=== PATIENT | male | born 1995 | race Caucasian/White ===

== ENCOUNTER 2023-03-17 22:29 | Inpatient (IN) ==
[2023-03-17] MEDS ORDERED: ACETAMINOPHEN 1,000 MG/100 ML VIAL IV STA (22:40)
[2023-03-17] MEDS ORDERED: KETOROLAC 30 MG/ML VIAL IV STA (22:40)
--- NOTE | 2023-03-17 22:56 | Emergency Department Note ---
History of Present Illness General Chief complaint: Illness Stated complaint: BACK PAIN,LETHARGIC,HURTS TO BREATHE Time Seen by Provider: 03/17/23 22:37 History of Present Illness Maximum Pain Intensity: 8 This is a 27-year-old male presenting to the emergency department for evaluation of difficulty breathing, fever, and body aches. The patient is [place] and has had symptoms for 2 weeks. He has not taken anything [id number] for symptoms. Patient is usually healthy and quite active. His discomfort is rated an 8/10. Discomfort worsens with movement. No photophobia. He does have persistent cough. Home Medications Medication Instructions Recorded Confirmed Type loratadine 10 mg tablet (Allergy 10 mg PO DAILY PRN Congestion 03/17/23 03/17/23 History Relief (loratadine)) Allergies Allergy/AdvReac Type Severity Reaction Status Date / Time No Known Allergies Allergy Verified 03/17/23 23:24 Past Med/Surg History Medical History No chronic diseases present Surgical History No significant past surgical history Social History Smoking Status: Current some day smoker Tobacco Type: Cigarettes Preferred Language: Setswana Feels Safe at Home: Yes Review of Systems A total of 10 systems reviewed and were otherwise negative Physical Exam Vital Signs Vital Signs - 24 hr 03/17/23 22:32 03/17/23 22:57 03/17/23 23:09 Temperature 38.3 C H Temperature Source Temporal Artery Scan Pulse Rate 105 H 107 H Pulse Rate [Finger] 94 H Pulse Rhythm [Finger] Regular Respiratory Rate 18 20 Respiratory Effort / Characteristics Non-Labored Spontaneous Non-Labored Spontaneous Respiratory Depth Normal Normal Blood Pressure 105/57 L Blood Pressure [Left Arm] 127/70 Blood Pressure Mean 73 Blood Pressure Mean [Left Arm] 89 Blood Pressure Position Sitting Pulse Oximetry 93 95 Oxygen Delivery Method Room Air Nasal Cannula Oxygen Flow Rate 4 Sepsis Recent Fever Within 48 Hours No Sepsis New/Unexplained Change in Mental Status No Sepsis Action Taken by Nursing Physician Notified 03/17/23 23:09 03/18/23 00:00 Temperature 38 C H Temperature Source Oral Pulse Rate Pulse Rate [Finger] Pulse Rhythm [Finger] Respiratory Rate Respiratory Effort / Characteristics Respiratory Depth Blood Pressure Blood Pressure [Left Arm] Blood Pressure Mean Blood Pressure Mean [Left Arm] Blood Pressure Position Pulse Oximetry 95 Oxygen Delivery Method Nasal Cannula Oxygen Flow Rate 4 Sepsis Recent Fever Within 48 Hours Sepsis New/Unexplained Change in Mental Status Sepsis Action Taken by Nursing VITALS: Vitals are noted on the nurse's note and reviewed by myself. Vital signs with fever and tachycardia. GENERAL: Well-developed, well-nourished, white male, who is ill-appearing on presentation. He is answering questions appropriately. EARS: External ear normal. External auditory canals clear, tympanic membranes pearly martínez without erythema or effusion bilaterally. EYES: Pupils equal round and reactive to light and accommodation. Conjunctivae without injection, sclerae without icterus. Extraocular movements intact. NOSE: Patent, turbinates without inflammation or discharge. MOUTH: Mucous membranes moist. Tonsils are not enlarged. Pharynx without erythema, blood, or exudate. Uvula midline. Airway patent. NECK: Supple without nuchal rigidity. No lymphadenopathy. No thyromegaly. Cervical spine is nontender. HEART: Regular rate and rhythm without murmurs gallops or rubs. LUNGS: Coarse breath sounds throughout diminished sounds in the left lower jasmine. ABDOMEN: Positive normal bowel sounds x 4. Soft, nontender, without masses or organomegaly. No guarding or rebound tenderness. MUSCULOSKELETAL: No muscle atrophy, erythema, or edema noted. Full range of motion in all extremities. NEURO: Patient was alert and oriented to person place and time. CN II through XII grossly intact. Course Administered Medications Magnesium Sulfate/Dextrose (Magnesium Sulfate / D5w) 1 gm in 100 mls @ 100 ml s/hr IV NOW STA Stop: 03/18/23 02:16 Last Admin: 03/18/23 01:34 Dose: 100 mls/hr Documented By: ROGER Discontinued Medications Sodium Chloride (Nss 1000ml) 1,000 mls @ 999 mls/hr IV .Q1H1M TASH Stop: 03/18/23 00:41 Last Infusion: 03/18/23 01:00 Dose: 0 mls/hr Documented By: Admin: 03/17/23 23:41 Dose: 999 mls/hr Documented By: Infusion: 03/17/23 23:39 Dose: 0 mls/hr Documented By: Admin: 03/17/23 23:07 Dose: 999 mls/hr Documented By: ROGER Acetaminophen (Ofirmev) 1,000 mg in 100 mls @ 400 mls/hr IV NOW STA Stop: 03/17/23 22:54 Last Infusion: 03/17/23 23:39 Dose: 0 mls/hr Documented By: Admin: 03/17/23 23:05 Dose: 400 mls/hr Documented By: ROGER Vancomycin HCl 2,000 mg/ (Sodium Chloride) 540 mls @ 200 mls/hr IV NOW ONE Stop: 03/18/23 01:58 Last Admin: 03/17/23 23:40 Dose: 200 mls/hr Documented By: ROGER Piperacillin Sod/Tazobactam Sod (Zosyn) 4.5 gm in 120 mls @ 240 mls/hr IV NOW ONE Stop: 03/17/23 23:46 Last Infusion: 03/18/23 00:10 Dose: 0 mls/hr Documented By: Admin: 03/17/23 23:40 Dose: 240 mls/hr Documented By: ROGER Ioversol (Optiray 320 500ml) 125 ml IV ONCE ONE Stop: 03/17/23 23:31 Last Admin: 03/17/23 23:30 Dose: 113 ml Documented By: STEPHY Ketorolac Tromethamine (Ketorolac 30 Mg/Ml Vial) 30 mg IV NOW STA Stop: 03/17/23 22:41 Last Admin: 03/17/23 23:05 Dose: 30 mg Documented By: ROGER Medical Decision Making Differential Diagnosis Differential diagnosis: Etiologies such as viral syndrome, otitis, pharyngitis, pneumonia, influenza, meningitis, urinary tract infection, septic arthritis, soft tissue infectious process, intra-abdominal process, sepsis, bacteremia, as well as others were entertained. Laboratory Data 03/17/23 23:00 03/17/23 23:00 Lab Results 03/17/23 03/17/23 03/17/23 Range/Units 23:00 23:00 23:00 WBC 9.73 (4.8-10.8) K/ul RBC 4.72 (4.70-6.10) M/uL Hgb 14.5 (14.0-18.0) g/dl POC Hgb (14.0-18.0) g/dl Hct 39.9 L (42.0-52.0) % POC Hct (42-52) % MCV 84.5 (80.0-100.0) fL MCH 30.7 (25.0-34.0) pg MCHC 36.3 H (32.0-36.0) g/dL RDW Std Deviation 36.8 (36.4-46.3) fL RDW Coeff of Faviola 12.1 (11.5-14.5) % Plt Count 102 L (130-400) K/uL MPV 11.3 (9.4-12.4) fL Immature Gran % (Auto) 0.4 % Neut % (Auto) 91.3 % Lymph % (Auto) 5.2 % Carson % (Auto) 3.0 % Eos % (Auto) 0.0 % Baso % (Auto) 0.1 % Neut # (Auto) 8.88 H (1.40-6.50) K/uL Lymph # (Auto) 0.51 L (1.2-3.4) K/uL Carson # (Auto) 0.29 (0.11-0.59) K/uL Eos # (Auto) 0.00 (0-0.50) K/uL Baso # (Auto) 0.01 (0-0.2) K/uL Immature Gran # (Auto) 0.04 (0.01-0.20) K/uL PT (9.0-12.0) Seconds INR (0.9-1.1) APTT (21.0-31.0) Seconds PTT Ratio POC Sodium (135-144) mmol/L Sodium 133 L (136-145) mmol/L POC Potassium (3.3-5.0) mmol/L Potassium 3.1 L (3.5-5.1) mmol/L POC Chloride (101-112) mmol/L Chloride 99 (98-107) mmol/L Carbon Dioxide 24 (21-32) mmol/L POC Total CO2 (24-31) mmol/L Anion Gap 10 (3-11) POC Anion Gap (16-25) mmol/L POC BUN (7-18) mg/dl BUN 15 (6-23) mg/dl Creatinine 0.98 (0.6-1.4) mg/dl POC Creatinine (0.6-1.3) mg/dl Est Cr Clr Drug Dosing 135.8 ml/min Est GFR ( Amer) 121.1 ml/min Est GFR (Non-Af Amer) 104.5 ml/min BUN/Creatinine Ratio 15.3 (10-20) Glucose 148 H (70-99(Fasting)) mg/dl POC Glucose (other) (70-99) mg/dl Lactate (0.4-2.0) mmol/L Calcium 8.6 (8.6-10.3) mg/dl POC Ioniz Calcium Hoa (1.12-1.32) mmol/l Magnesium 1.1 L (1.7-2.4) mg/dl Total Bilirubin 1.2 H (0.2-1.0) mg/dl AST 20 (13-39) U/L ALT 18 (7-52) U/L Alkaline Phosphatase 55 (34-104) U/L Troponin I High Sens 4.7 (0-20) pg/ml Total Protein 6.5 (6.0-8.3) gm/dl Albumin 4.2 (3.4-5.0) gm/dl Globulin 2.3 L (2.5-4.0) gm/dl Albumin/Globulin Ratio 1.8 (0.9-2) Lipase 9 L (11-82) U/L Adenovirus (PCR) (NotDetected) Anaplasma Smear B. pertussis DNA (PCR) (NotDetected) B.parapertussis DNA PCR (NotDetected) Lyme Disease IgG Ab Negative (Negative) Lyme Disease IgM Ab Negative (Negative) C. pneumoniae DNA (PCR) (NotDetected) Coronavirus OC43 (PCR) (NotDetected) Coronavirus HKU1 (PCR) (NotDetected) Coronavirus 229E (PCR) (NotDetected) SARS-CoV-2 (PCR) (NotDetected) Coronavirus NL63 (PCR) (NotDetected) Human Metapneumovir PCR (NotDetected) Influenza Type A (PCR) (NotDetected) Influenza Type B (PCR) (NotDetected) M. pneumoniae (PCR) (NotDetected) Parainfluenza 1 (PCR) (NotDetected) Parainfluenza 2 (PCR) (NotDetected) Parainfluenza 3 (PCR) (NotDetected) Parainfluenza 4 (PCR) (NotDetected) RSV (PCR) (NotDetected) Entero/Rhino (PCR) (NotDetected) 03/17/23 03/17/23 03/17/23 Range/Units 23:00 23:00 23:00 WBC (4.8-10.8) K/ul RBC (4.70-6.10) M/uL Hgb (14.0-18.0) g/dl POC Hgb (14.0-18.0) g/dl Hct (42.0-52.0) % POC Hct (42-52) % MCV (80.0-100.0) fL MCH (25.0-34.0) pg MCHC (32.0-36.0) g/dL RDW Std Deviation (36.4-46.3) fL RDW Coeff of Faviola (11.5-14.5) % Plt Count (130-400) K/uL MPV (9.4-12.4) fL Immature Gran % (Auto) % Neut % (Auto) % Lymph % (Auto) % Carson % (Auto) % Eos % (Auto) % Baso % (Auto) % Neut # (Auto) (1.40-6.50) K/uL Lymph # (Auto) (1.2-3.4) K/uL Carson # (Auto) (0.11-0.59) K/uL Eos # (Auto) (0-0.50) K/uL Baso # (Auto) (0-0.2) K/uL Immature Gran # (Auto) (0.01-0.20) K/uL PT 12.3 H (9.0-12.0) Seconds INR 1.1 (0.9-1.1) APTT 32.9 H (21.0-31.0) Seconds PTT Ratio 1.2 POC Sodium (135-144) mmol/L Sodium (136-145) mmol/L POC Potassium (3.3-5.0) mmol/L Potassium (3.5-5.1) mmol/L POC Chloride (101-112) mmol/L Chloride (98-107) mmol/L Carbon Dioxide (21-32) mmol/L POC Total CO2 (24-31) mmol/L Anion Gap (3-11) POC Anion Gap (16-25) mmol/L POC BUN (7-18) mg/dl BUN (6-23) mg/dl Creatinine (0.6-1.4) mg/dl POC Creatinine (0.6-1.3) mg/dl Est Cr Clr Drug Dosing ml/min Est GFR ( Amer) ml/min Est GFR (Non-Af Amer) ml/min BUN/Creatinine Ratio (10-20) Glucose (70-99(Fasting)) mg/dl POC Glucose (other) (70-99) mg/dl Lactate 1.6 (0.4-2.0) mmol/L Calcium (8.6-10.3) mg/dl POC Ioniz Calcium Hoa (1.12-1.32) mmol/l Magnesium (1.7-2.4) mg/dl Total Bilirubin (0.2-1.0) mg/dl AST (13-39) U/L ALT (7-52) U/L Alkaline Phosphatase (34-104) U/L Troponin I High Sens (0-20) pg/ml Total Protein (6.0-8.3) gm/dl Albumin (3.4-5.0) gm/dl Globulin (2.5-4.0) gm/dl Albumin/Globulin Ratio (0.9-2) Lipase (11-82) U/L Adenovirus (PCR) (NotDetected) Anaplasma Smear See Comment B. pertussis DNA (PCR) (NotDetected) B.parapertussis DNA PCR (NotDetected) Lyme Disease IgG Ab (Negative) Lyme Disease IgM Ab (Negative) C. pneumoniae DNA (PCR) (NotDetected) Coronavirus OC43 (PCR) (NotDetected) Coronavirus HKU1 (PCR) (NotDetected) Coronavirus 229E (PCR) (NotDetected) SARS-CoV-2 (PCR) (NotDetected) Coronavirus NL63 (PCR) (NotDetected) Human Metapneumovir PCR (NotDetected) Influenza Type A (PCR) (NotDetected) Influenza Type B (PCR) (NotDetected) M. pneumoniae (PCR) (NotDetected) Parainfluenza 1 (PCR) (NotDetected) Parainfluenza 2 (PCR) (NotDetected) Parainfluenza 3 (PCR) (NotDetected) Parainfluenza 4 (PCR) (NotDetected) RSV (PCR) (NotDetected) Entero/Rhino (PCR) (NotDetected) 03/17/23 03/17/23 Range/Units 23:11 23:15 WBC (4.8-10.8) K/ul RBC (4.70-6.10) M/uL Hgb (14.0-18.0) g/dl POC Hgb 14.3 (14.0-18.0) g/dl Hct (42.0-52.0) % POC Hct 42 (42-52) % MCV (80.0-100.0) fL MCH (25.0-34.0) pg MCHC (32.0-36.0) g/dL RDW Std Deviation (36.4-46.3) fL RDW Coeff of Faviola (11.5-14.5) % Plt Count (130-400) K/uL MPV (9.4-12.4) fL Immature Gran % (Auto) % Neut % (Auto) % Lymph % (Auto) % Carson % (Auto) % Eos % (Auto) % Baso % (Auto) % Neut # (Auto) (1.40-6.50) K/uL Lymph # (Auto) (1.2-3.4) K/uL Carson # (Auto) (0.11-0.59) K/uL Eos # (Auto) (0-0.50) K/uL Baso # (Auto) (0-0.2) K/uL Immature Gran # (Auto) (0.01-0.20) K/uL PT (9.0-12.0) Seconds INR (0.9-1.1) APTT (21.0-31.0) Seconds PTT Ratio POC Sodium 134 L (135-144) mmol/L Sodium (136-145) mmol/L POC Potassium 3.1 L (3.3-5.0) mmol/L Potassium (3.5-5.1) mmol/L POC Chloride 95 L (101-112) mmol/L Chloride (98-107) mmol/L Carbon Dioxide (21-32) mmol/L POC Total CO2 22 L (24-31) mmol/L Anion Gap (3-11) POC Anion Gap 20.0 (16-25) mmol/L POC BUN 13 (7-18) mg/dl BUN (6-23) mg/dl Creatinine (0.6-1.4) mg/dl POC Creatinine 1.0 (0.6-1.3) mg/dl Est Cr Clr Drug Dosing ml/min Est GFR ( Amer) ml/min Est GFR (Non-Af Amer) ml/min BUN/Creatinine Ratio (10-20) Glucose (70-99(Fasting)) mg/dl POC Glucose (other) 153 H (70-99) mg/dl Lactate (0.4-2.0) mmol/L Calcium (8.6-10.3) mg/dl POC Ioniz Calcium Hoa 1.09 L (1.12-1.32) mmol/l Magnesium (1.7-2.4) mg/dl Total Bilirubin (0.2-1.0) mg/dl AST (13-39) U/L ALT (7-52) U/L Alkaline Phosphatase (34-104) U/L Troponin I High Sens (0-20) pg/ml Total Protein (6.0-8.3) gm/dl Albumin (3.4-5.0) gm/dl Globulin (2.5-4.0) gm/dl Albumin/Globulin Ratio (0.9-2) Lipase (11-82) U/L Adenovirus (PCR) Not Detected (NotDetected) Anaplasma Smear B. pertussis DNA (PCR) Not Detected (NotDetected) B.parapertussis DNA PCR Not Detected (NotDetected) Lyme Disease IgG Ab (Negative) Lyme Disease IgM Ab (Negative) C. pneumoniae DNA (PCR) Not Detected (NotDetected) Coronavirus OC43 (PCR) Not Detected (NotDetected) Coronavirus HKU1 (PCR) Not Detected (NotDetected) Coronavirus 229E (PCR) Not Detected (NotDetected) SARS-CoV-2 (PCR) Not Detected (NotDetected) Coronavirus NL63 (PCR) Not Detected (NotDetected) Human Metapneumovir PCR Not Detected (NotDetected) Influenza Type A (PCR) Not Detected (NotDetected) Influenza Type B (PCR) Not Detected (NotDetected) M. pneumoniae (PCR) Not Detected (NotDetected) Parainfluenza 1 (PCR) Not Detected (NotDetected) Parainfluenza 2 (PCR) DETECTED A* (NotDetected) Parainfluenza 3 (PCR) Not Detected (NotDetected) Parainfluenza 4 (PCR) Not Detected (NotDetected) RSV (PCR) Not Detected (NotDetected) Entero/Rhino (PCR) Not Detected (NotDetected) Imaging Data Radiologist's Impression: Chest CTA 03/17/23 23:00 Exam(s): CTA CHEST IV Amt: 112 ml optiray 320 EXAM: CT Angiography Chest With Intravenous Contrast CLINICAL HISTORY: Reason for exam: Fever, SOB, cough. TECHNIQUE: Axial computed tomographic angiography images of the chest with intravenous contrast. CTDI is 20.5 mGy and DLP is 673.81 mGy-cm. Automated exposure control was utilized for the study. A dose lowering technique was utilized adhering to the principles of ALARA. MIP reconstructed images were created and reviewed. COMPARISON: Prior chest x-ray dated 03/17/2023 FINDINGS: Pulmonary arteries: Breathing motion artifact limits evaluation of the peripheral arteries. No central pulmonary embolism. Somewhat low- density appearance in the left upper lobe segmental/subsegmental artery, series 4 image 158. Limited evaluation with motion artifact at this level. Small PE not excluded. Aorta: No acute findings. No thoracic aortic aneurysm. Lungs: Large area of consolidation in the left lower lobe. Mild right basilar atelectasis or airspace disease. Pleural space: Unremarkable. No significant effusion. No pneumothorax. Heart: Unremarkable. No cardiomegaly. No significant pericardial effusion. No evidence of RV dysfunction. Bones/joints: No acute fracture. No dislocation. Soft tissues: Unremarkable. Lymph nodes: Unremarkable. No enlarged lymph nodes. Kidneys and ureters: Partially visualized left kidney appears to have cortical thinning and cystic changes or hydronephrosis. Limited minimal visualization. IMPRESSION: 1. Large area of consolidation in the left lower lobe. Likely represents pneumonia. Consider follow-up to exclude malignancy. 2. Breathing motion artifact limits evaluation of the peripheral arteries. No central pulmonary embolism. Somewhat low-density appearance in the left upper lobe segmental/subsegmental artery, series 4 image 158. Limited evaluation with motion artifact at this level. Small PE not excluded. 3. Partially visualized left kidney appears to have cortical thinning and cystic changes or hydronephrosis. Limited minimal visualization. Electronically signed by: Melchor Pham M.D. 03/18/23 00:56 AM MDM Narrative Physical exam and history were performed. Nursing notes, EMR, and Medication List were personally reviewed. No social concerns were identified as barriers to patients care. Patient appears to have fever and difficulty breathing bring him to the ER. He does appear ill on presentation. He has diminished breath sounds in the left lower lobes. IV access was established and labs were obtained. Sepsis work-up was begun. He was given 2 L normal saline, IV vancomycin, and IV Zosyn. He was given IV Toradol and IV Tylenol. He was placed on nasal cannula oxygen for comfort. Chest x-ray appears to show pneumonia and he was sent to CT scan for further differentiation. An order was placed for continuous cardiac monitoring. The monitor shows a rate of 94 with normal sinus rhythm. Patient's blood work is as above and was reviewed. He does not have an elevated white blood cell count, gross anemia, or significant electrolyte imbalance. INR is 1.1. Potassium is 3.1. Magnesium is low at 1.1 and this was repleted through the IV. Transaminases are not diagnostic. Troponin is negative. Bio fire is POSITIVE for parainfluenza 2. CT angiogram does show a large left lower lobe pneumonia which would correlate with his symptoms. Lactic is negative with blood cultures pending. Case was discussed with my attending physician, Dr. Lackey, as well as the on- call hospitalist team. The patient does not appear well for discharge home. He does have a large left lower lobe pneumonia that would likely benefit from continued IV antibiotics. Please see the hospitalist dictation for further patient course, plan, disposition. The chart was completed utilizing [employer] Voice Recognition Software. Grammatical errors, random word insertions, pronoun errors, and incomplete sentences are an occasional consequence of this system due to software limitations, ambient noise, and hardware issues. Any formal questions or concerns about the content, text, or information contained within the body of this dictation should be directly addressed to the provider for clarification. . Impression & Plan Left lower lobe pneumonia, Parainfluenza infection, Low blood magnesium Discharge Plan Visit Data Chief Complaint: Illness Stated Complaint: BACK PAIN,LETHARGIC,HURTS TO BREATHE ED Provider: Carlo Lackey ED Midlevel Provider: Foreign Nunez Discharge Problem: Left lower lobe pneumonia, Parainfluenza infection, Low blood magnesium Forms Stand Alone Forms: My [facility] [employer] Prescriptions Prescriptions: No Action loratadine [Allergy Relief (loratadine)] 10 mg Tablet 10 mg PO DAILY PRN (Reason: Congestion) Referrals Referrals: PCP,NO [Primary Care Provider] -
[2023-03-17] MEDS: SODIUM CHLORIDE 0.9% 1000ML 1,000 ML IV SCH ×2 (23:07→23:41)
[2023-03-17] MEDS ORDERED: VANCOMYCIN CONSULT ACTIVE PRN (23:17)
[2023-03-17] MEDS ORDERED: PIPERACILLIN/TAZOBACTAM 4.5 GM/120 ML BAG IV ONE (23:17)
[2023-03-17] MEDS ORDERED: VANCOMYCIN HCL 2,000 MG in SODIUM CHLORIDE 0.9% 500 ML IV ONE (23:17)
[2023-03-17 23:24] LABS: iSTAT Hemoglobin 14.3 g/dl (14.0-18.0); iSTAT Ionized Calcium 1.09 mmol/l (1.12-1.32); iSTAT Potassium 3.1 mmol/L (3.3-5.0)
[2023-03-17] MEDS ORDERED: OPTIRAY 320 500ml IV ONE (23:30)
[2023-03-17 23:43] LABS: Albumin Globulin Ratio 1.8 (0.9-2); Albumin Level 4.2 gm/dl (3.4-5.0); BUN Creatinine Ratio 15.3 (10-20); Bilirubin,Total 1.2 mg/dl (0.2-1.0); Calcium 8.6 mg/dl (8.6-10.3); Creatinine Clr Calc Pharmacy 135.8 ml/min; Est GFR (African American) 121.1 ml/min; Est GFR (Non-African American) 104.5 ml/min; Globulin 2.3 gm/dl (2.5-4.0); Magnesium 1.1 mg/dl (1.7-2.4); Potassium 3.1 mmol/L (3.5-5.1); Total Protein 6.5 gm/dl (6.0-8.3)
[2023-03-17 23:47] LABS: Hematocrit (blood only) 39.9 % (42.0-52.0); Hemoglobin 14.5 g/dl (14.0-18.0); Mean Corpuscular Hemoglobin 30.7 pg (25.0-34.0); Mean Corpuscular Hgb Conc 36.3 g/dL (32.0-36.0); Mean Corpuscular Volume 84.5 fL (80.0-100.0); Mean Platelet Volume 11.3 fL (9.4-12.4); Platelet Count 102 K/uL (130-400); RDW Coefficient of Variation 12.1 % (11.5-14.5); RDW Standard Deviation 36.8 fL (36.4-46.3); Red Blood Count 4.72 M/uL (4.70-6.10); Troponin I High Sensitivity 4.7 pg/ml (0-20); White Blood Count 9.73 K/ul (4.8-10.8)
[2023-03-17 23:51] LABS: Basophils # (auto) 0.01 K/uL (0-0.2); Basophils % (auto) 0.1 %; Immature Granulocytes # (auto) 0.04 K/uL (0.01-0.20); Immature Granulocytes % (auto) 0.4 %; Lymphocytes # (auto) 0.51 K/uL (1.2-3.4); Lymphocytes % (auto) 5.2 %; Monocytes # (auto) 0.29 K/uL (0.11-0.59); Neutrophils # (auto) 8.88 K/uL (1.40-6.50); Neutrophils % (auto) 91.3 %
[2023-03-17 23:52] LABS: INR 1.1 (0.9-1.1); Partial Thromboplastin Ratio 1.2; Partial Thromboplastin Time 32.9 Seconds (21.0-31.0); Prothrombin Time 12.3 Seconds (9.0-12.0)
[2023-03-18 00:11] LABS: Lyme Ab IgG w/WB Rflx Negative (Negative); Lyme Ab IgM w/WB Rflx Negative (Negative)
[2023-03-18 00:32] LABS: Adenovirus PCR Not Detected (NotDetected); Bordetella parapertussis PCR Not Detected (NotDetected); Bordetella pertussis PCR Not Detected (NotDetected); Chlamydia pneumoniae PCR Not Detected (NotDetected); Coronavirus 229E PCR Not Detected (NotDetected); Coronavirus CoV-2 (COVID19)PCR Not Detected (NotDetected); Coronavirus HKU1 PCR Not Detected (NotDetected); Coronavirus NL63 PCR Not Detected (NotDetected); Coronavirus OC43PCR Not Detected (NotDetected); Human Metapneumovirus PCR Not Detected (NotDetected); Influenza A PCR Not Detected (NotDetected); Influenza B PCR Not Detected (NotDetected); Mycoplasma pneumoniae PCR Not Detected (NotDetected); Parainfluenza Virus 1 PCR Not Detected (NotDetected); Parainfluenza Virus 3 PCR Not Detected (NotDetected); Parainfluenza Virus 4 PCR Not Detected (NotDetected); Respiratory Syncytial VirusPCR Not Detected (NotDetected); Rhinovirus/Enterovirus PCR Not Detected (NotDetected)
[2023-03-18 00:33] LABS: Parainfluenza Virus 2 PCR DETECTED (NotDetected)
--- NOTE | 2023-03-18 00:57 | CT Scan Report ---
Exam(s): CTA CHEST IV Amt: 112 ml optiray 320 EXAM: CT Angiography Chest With Intravenous Contrast CLINICAL HISTORY: Reason for exam: Fever, SOB, cough. TECHNIQUE: Axial computed tomographic angiography images of the chest with intravenous contrast. CTDI is 20.5 mGy and DLP is 673.81 mGy-cm. Automated exposure control was utilized for the study. A dose lowering technique was utilized adhering to the principles of ALARA. MIP reconstructed images were created and reviewed. COMPARISON: Prior chest x-ray dated 03/17/2023 FINDINGS: Pulmonary arteries: Breathing motion artifact limits evaluation of the peripheral arteries. No central pulmonary embolism. Somewhat low- density appearance in the left upper lobe segmental/subsegmental artery, series 4 image 158. Limited evaluation with motion artifact at this level. Small PE not excluded. Aorta: No acute findings. No thoracic aortic aneurysm. Lungs: Large area of consolidation in the left lower lobe. Mild right basilar atelectasis or airspace disease. Pleural space: Unremarkable. No significant effusion. No pneumothorax. Heart: Unremarkable. No cardiomegaly. No significant pericardial effusion. No evidence of RV dysfunction. Bones/joints: No acute fracture. No dislocation. Soft tissues: Unremarkable. Lymph nodes: Unremarkable. No enlarged lymph nodes. Kidneys and ureters: Partially visualized left kidney appears to have cortical thinning and cystic changes or hydronephrosis. Limited minimal visualization. IMPRESSION: 1. Large area of consolidation in the left lower lobe. Likely represents pneumonia. Consider follow-up to exclude malignancy. 2. Breathing motion artifact limits evaluation of the peripheral arteries. No central pulmonary embolism. Somewhat low-density appearance in the left upper lobe segmental/subsegmental artery, series 4 image 158. Limited evaluation with motion artifact at this level. Small PE not excluded. 3. Partially visualized left kidney appears to have cortical thinning and cystic changes or hydronephrosis. Limited minimal visualization. Electronically signed by: Melchor Pham M.D. 03/18/23 00:56 AM
[2023-03-18] MEDS ORDERED: MAGNESIUM SULFATE / D5W 1 GM/100 ML BAG IV STA (01:17)
[2023-03-18] MEDS ORDERED: ONDANSETRON INJ 2 MG/ML 2 ML VIAL IV PRN (03:17)
[2023-03-18] MEDS ORDERED: NITROGLYCERIN SL 0.4 MG/TAB TAB SL PRN (03:17)
[2023-03-18] MEDS ORDERED: ACETAMINOPHEN 325 MG TAB PO PRN (03:17)
[2023-03-18 03:41] LABS: Appearance Urine Clear (Clear); Bilirubin Urine Negative (Negative); Blood Urine Negative (Negative); Color Urine Yellow; Glucose Urine UA Negative (Negative); Ketones Urine Negative (Negative); Leukocyte Esterase Urine Negative (Negative); Nitrite Urine Negative (Negative); Protein Urine Negative (Negative); Specific Gravity Urine 1.017 (1.000-1.030); Urobilinogen Urine Negative (Negative); pH Urine 5.5 (4.5-7.5)
[2023-03-18] MEDS: SODIUM CHLORIDE 0.9% 1000ML 1,000 ML IV SCH ×2 (03:41→11:29)
[2023-03-18] MEDS: POTASSIUM CHLORIDE / WTR 10 MEQ/100 ML PLCT IV SCH ×4 (03:41→07:00)
[2023-03-18] MEDS: MAGNESIUM SULFATE / D5W 1 GM/100 ML BAG IV SCH ×2 (03:42→05:50)
[2023-03-18] MEDS: DOXYCYCLINE HYCLATE 100 MG in DEXTROSE 5% 100 ML IV SCH ×2 (04:14→16:02)
--- NOTE | 2023-03-18 05:24 | History and Physical Report ---
DATE OF ADMISSION: 03/18/2023. CHIEF COMPLAINT: Shortness of breath, cough. HISTORY OF PRESENT ILLNESS: A 27-year-old male [facility] patient presents with flu-like symptoms last 2 weeks, has cough, body aches, back pain going on for the last 2 weeks but lately got worse with some shortness of breath, poor appetite, and a couple of episodes of nausea today, which prompted him to come to the ER .In ER and was spiking temperature, was placed on oxygen, slightly tachycardic. Respiratory BioFire came back positive for parainfluenza and CTA chest showed left lower lobe pneumonia, . The patient received antibiotics, vancomycin and Zosyn in the ER. The patient is alert, awake, speaks with low voice. Denies any chest pain. Denies any headache. No blurred visions. No earache. Has some runny nose and some sore throat. No abdominal pain. Normal bowel and bladder movements. No rash. No swelling in the legs. ALLERGIES: No known drug allergies. PAST MEDICAL HISTORY: Denies any past medical history. PAST SURGICAL HISTORY: Denies any surgeries. MEDICATIONS: Denies taking any medications. FAMILY HISTORY: Denies any family history of heart disease or cancer, hypertension, diabetes. REVIEW OF SYSTEMS: As per HPI. Rest of review of systems is negative. PHYSICAL EXAMINATION: GENERAL: The patient is of moderate build, not in acute distress. VITAL SIGNS: T-max 38.3, pulse 94, respiratory rate 20, blood pressure 112/66, oxygen 94 % on 4 liters. HEENT: Pupils equal, round and reactive to light. Oral mucosa moist. NECK: No JVD, no neck masses. CARDIOVASCULAR: S1 and S2 heard. Tachycardia. No murmurs. RESPIRATORY SYSTEM: Normal AP diameter. No accessory muscle use. No wheezing or crackles. ABDOMEN: Soft, bowel sounds present, nontender, no distention. CENTRAL NERVOUS SYSTEM: Alert and oriented. Speech is clear. No facial droop. Obeys simple commands. Moves extremities. EXTREMITIES: No edema, no erythema. LABORATORY DATA: WBC 9.7, hemoglobin 14.5, hematocrit 39.9, platelets 102. PT 12.3, INR 1.1, APTT 32.9. Sodium 133, potassium 3.1, chloride 99, CO2 of 24, BUN 15, creatinine 0.9, serum glucose 148, lactate 1.6, calcium 8.6, magnesium 1.1, total bilirubin 1.2, AST 20, ALT 18, alkaline phosphatase 55. Troponin I high sensitivity 4.7, lipase 9. Respiratory BioFire positive for parainfluenza. Lyme screen negative. Anaplasma screen negative. Adenovirus negative. IMAGING DATA: CTA chest : 1. Large area of consolidation in the left lower lobe. Likely represents pneumonia. Consider follow-up to exclude malignancy. 2. Breathing motion artifact limits evaluation of the peripheral arteries. No central pulmonary embolism. Somewhat low-density appearance in the left upper lobe segmental/subsegmental artery, series 4 image 158. Limited evaluation with motion artifact at this level. Small PE not excluded. 3. Partially visualized left kidney appears to have cortical thinning and cystic changes or hydronephrosis. Limited minimal visualization. EKG: Normal sinus rhythm, rate of 87, right bundle-branch block. ASSESSMENT AND PLAN: This is a 27-year-old male who presents with ongoing flu- like symptoms for the last [address] scan showing left lower lobe pneumonia. 1. Left lower lobe pneumonia questionable underlying malignancy. Needs to follow up to rule out. ER empirically started vancomycin and Zosyn. Will continue with Zosyn and doxycycline. Follow the cultures. Close monitor. 2. Parainfluenza infection.On resp biofire. Droplet precautions. Supportive care. 3. Possible Small PE. Started empirically on low dose iv heparin. Can repeat CT chest or discuss with radiology in am. 2. Electrolyte abnormalities, hypokalemia, hypomagnesemia. We will replace.Will follow labs. 3. Deep venous thrombosis prophylaxis, starting on IV heparin. DISPOSITION: Closely monitor in the med tele. PT/OT prior to discharge. Social service to help with discharge planning. Job ID: [id number] [facility]
[2023-03-18] MEDS: PIPERACILLIN/TAZOBACTAM 4.5 GM in DEXTROSE 5% 100 ML IV SCH ×3 (06:21→23:10)
[2023-03-18] MEDS ORDERED: Heparin IV Adult Wt-Based Low-Dose *NO* Bolus Protocol IV STA (06:51)
[2023-03-18] MEDS ORDERED: HEPARIN SODIUM/DEXTROSE 25,000 UNITS/500 ML BAG IV SCH (07:00)
[2023-03-18 08:01] LABS: BUN Creatinine Ratio 14.4 (10-20); Calcium 8.3 mg/dl (8.6-10.3); Creatinine Clr Calc Pharmacy 137.2 ml/min; Est GFR (African American) 122.6 ml/min; Est GFR (Non-African American) 105.8 ml/min; Potassium 3.9 mmol/L (3.5-5.1)
--- NOTE | 2023-03-18 08:08 | XRay Report ---
XR chest 1V portable CLINICAL HISTORY: fever COMPARISON STUDY: No previous studies for comparison. FINDINGS: There is no pneumothorax or pleural effusion. Extensive left lower lobe consolidation is pr esent. Cardiac size is at the upper limits of normal. No evidence for pulmonary edema. IMPRESSION: Extensive left lower lobe consolidation suggestive of pneumonia. Post treatment radiograp hs to ensure resolution are recommended. ACT 112: Negative or not required by law. Electronically signed by: Nestor Diallo M.D. 03/18/2023 8:07 AM
[2023-03-18 08:20] LABS: Basophils # (auto) 0.01 K/uL (0-0.2); Basophils % (auto) 0.1 %; Dohle Bodies 1+; Echinocytes 2+; Hematocrit (blood only) 39.4 % (42.0-52.0); Hemoglobin 14.1 g/dl (14.0-18.0); Immature Granulocytes # (auto) 0.01 K/uL (0.01-0.20); Immature Granulocytes % (auto) 0.1 %; Lymphocytes # (auto) 0.57 K/uL (1.2-3.4); Lymphocytes % (auto) 8.2 %; Mean Corpuscular Hemoglobin 30.7 pg (25.0-34.0); Mean Corpuscular Hgb Conc 35.8 g/dL (32.0-36.0); Mean Corpuscular Volume 85.7 fL (80.0-100.0); Mean Platelet Volume 11.3 fL (9.4-12.4); Monocytes # (auto) 0.16 K/uL (0.11-0.59); Monocytes % (auto) 2.3 %; Neutrophils # (auto) 6.16 K/uL (1.40-6.50); Neutrophils % (auto) 89.3 %; Platelet Count 95 K/uL (130-400); Platelet Estimate Decreased (Normal); RDW Coefficient of Variation 12.5 % (11.5-14.5); RDW Standard Deviation 38.6 fL (36.4-46.3); White Blood Count 6.91 K/ul (4.8-10.8)
[2023-03-18] MEDS ORDERED: ENOXAPARIN INJ 40 MG/0.4 ML SYR SQ SCH (09:00)
[2023-03-18 15:20] LABS: Partial Thromboplastin Ratio 1.3; Partial Thromboplastin Time 35.6 Seconds (21.0-31.0)
--- NOTE | 2023-03-18 15:27 | Electrocardiogram Report ---
Test Reason : Blood Pressure : / mmHG Vent. Rate : 087 BPM Atrial Rate : 087 BPM P-R Int : 156 ms QRS Dur : 118 ms QT Int : 356 ms P-R-T Axes : 068 095 045 degrees QTc Int : 428 ms Normal sinus rhythm Right bundle branch block Abnormal ECG No previous ECGs available Confirmed by Telly Chen ([id number]) on 03/18/2023 3:27:36 PM Referred By: REFERRED SELF Confirmed By:Juan Chen
--- NOTE | 2023-03-18 15:42 | Hospitalist Progress Note ---
Date of Service March 18, 2023 Assessment & Plan (1) Left lower lobe pneumonia: (2) Parainfluenza infection: Plan: ASSESSMENT AND PLAN: This is a 27-year-old male who presents with ongoing flu- like symptoms for the last [address] scan showing left lower lobe pneumonia. 1. Left lower lobe pneumonia - discussed with Radiologist, no PE - ff up cultures - continue IV Zosyn and Doxy Nebs q6h IS and FV - monitor closely 2. Parainfluenza infection.On resp biofire. Droplet precautions. Supportive care. 3. Possible Small PE. - ruled out - has some trace edema and pain over his legs Doppler US to r/o DVT 2. Electrolyte abnormalities, hypokalemia, hypomagnesemia. We will replace.Will follow labs. - replace and monitor plan of care discussed with patient and family in detail and at length all questions answered they are understanding, agreeable, comfortable with the plan of care Admission and Anticipated Discharge Date Admission Date: March 18, 2023 Subjective ff up for LLL pneumonia, etc seen resting in bed, sitting up not in distress on room air appears tired states he feels improved since admission still has some chest pain on the left base, congestion no shortness of breath no other symptoms Review of Systems Review of Systems: all noted and negative except for above Physical Exam Physical Exam: General- oriented x 3, not in distress, speaks in sentences with no effort or accessory muscle use Head- atraumatic Eyes- PERRL, EOMI, anicteric ENT- oropharynx clear Neck- supple, no JVD, no adenopathy, no thyromegaly; carotids +2/2, no bruits appreciated Lungs- (+) decreased breath sounds L lower lung Heart- normal rate, regular rhythm; no murmur, no gallop, no rub appreciated Abdomen- normal bowel sounds, nondistended, soft, nontender, no masses or hepatosplenomegaly Extremities- no pretibial edema, no calf tenderness; peripheral pulses intact Neuro- alert, oriented x 3; CN 2-12 grossly intact; motor 5/5 bilaterally;sensation 100% on all extremities; no other gross focal neurologic deficits Skin- warm & dry Results & Data Results & Data Vital Signs (Past 12 Hours) Vital Signs Temp Pulse Pulse Resp BP BP Pulse Ox 03/18/23 14:37 03/18/23 14:37 36.7 C 68 18 106/61 94 03/18/23 12:30 76 22 97 03/18/23 12:00 82 27 H 98 03/18/23 11:30 80 25 H 98 03/18/23 11:27 84 20 99 03/18/23 11:27 117/72 03/18/23 11:00 89 20 96 03/18/23 10:30 75 20 97 03/18/23 10:00 77 17 96 03/18/23 09:30 89 23 96 03/18/23 09:00 76 19 96 03/18/23 08:30 84 22 94 03/18/23 08:00 87 22 93 03/18/23 08:00 105/67 03/18/23 07:57 86 23 94 03/18/23 07:57 107/71 03/18/23 07:00 87 20 94 03/18/23 07:00 116/74 03/18/23 08:06 37.2 C 88 16 105/67 94 03/18/23 06:30 78 20 124/74 95 03/18/23 06:51 81 03/18/23 06:00 85 21 113/75 94 03/18/23 05:30 87 20 110/70 97 03/18/23 05:00 90 18 110/64 96 03/18/23 04:30 80 17 97/67 L 96 03/18/23 04:00 76 16 115/63 98 O2 Del Method O2 Flow Rate 03/18/23 14:37 Room Air 03/18/23 14:37 Room Air 03/18/23 12:30 03/18/23 12:00 03/18/23 11:30 03/18/23 11:27 03/18/23 11:27 03/18/23 11:00 03/18/23 10:30 03/18/23 10:00 03/18/23 09:30 03/18/23 09:00 03/18/23 08:30 03/18/23 08:00 03/18/23 08:00 03/18/23 07:57 03/18/23 07:57 03/18/23 07:00 03/18/23 07:00 03/18/23 08:06 Nasal Cannula 4 03/18/23 06:30 Nasal Cannula 4 03/18/23 06:51 03/18/23 06:00 Nasal Cannula 4 03/18/23 05:30 Nasal Cannula 4 03/18/23 05:00 Nasal Cannula 4 03/18/23 04:30 Nasal Cannula 4 03/18/23 04:00 Nasal Cannula 4 all noted and reviewed including below
[2023-03-18] MEDS ORDERED: XOPENEX/ATROVENT 1.25mg/0.5MG NEB COMBO NEB SCH (19:00)
[2023-03-18] MEDS: LEVALBUTEROL 1.25 MG/3 ML NEB NEB SCH (19:53)
[2023-03-18] MEDS: IPRATROPIUM BROMIDE NEB SOLN 0.02% 2.5 ML VIAL INH SCH (19:53)
[2023-03-18] MEDS: SODIUM CHLOR 7% 4 ML NEB NEB SCH (19:54)
[2023-03-19] MEDS: LEVALBUTEROL 1.25 MG/3 ML NEB NEB SCH ×4 (00:16→19:54)
[2023-03-19] MEDS: IPRATROPIUM BROMIDE NEB SOLN 0.02% 2.5 ML VIAL INH SCH ×4 (00:16→19:54)
[2023-03-19] MEDS: DOXYCYCLINE HYCLATE 100 MG in DEXTROSE 5% 100 ML IV SCH ×2 (03:44→15:15)
[2023-03-19] MEDS: PIPERACILLIN/TAZOBACTAM 4.5 GM in DEXTROSE 5% 100 ML IV SCH ×3 (05:47→22:03)
[2023-03-19] MEDS: SODIUM CHLOR 7% 4 ML NEB NEB SCH ×2 (07:23→19:54)
[2023-03-19 08:48] LABS: Basophils # (auto) 0.02 K/uL (0-0.2); Basophils % (auto) 0.3 %; Eosinophils # (auto) 0.04 K/uL (0-0.50); Eosinophils % (auto) 0.7 %; Hematocrit (blood only) 38.8 % (42.0-52.0); Hemoglobin 13.6 g/dl (14.0-18.0); Immature Granulocytes # (auto) 0.03 K/uL (0.01-0.20); Immature Granulocytes % (auto) 0.5 %; Lymphocytes % (auto) 13.5 %; Mean Corpuscular Hemoglobin 30.8 pg (25.0-34.0); Mean Corpuscular Hgb Conc 35.1 g/dL (32.0-36.0); Mean Corpuscular Volume 87.8 fL (80.0-100.0); Mean Platelet Volume 11.1 fL (9.4-12.4); Monocytes # (auto) 0.21 K/uL (0.11-0.59); Monocytes % (auto) 3.6 %; Neutrophils # (auto) 4.81 K/uL (1.40-6.50); Neutrophils % (auto) 81.4 %; Platelet Count 103 K/uL (130-400); RDW Coefficient of Variation 12.7 % (11.5-14.5); RDW Standard Deviation 40.5 fL (36.4-46.3); Red Blood Count 4.42 M/uL (4.70-6.10); White Blood Count 5.91 K/ul (4.8-10.8)
[2023-03-19 09:04] LABS: Albumin Globulin Ratio 1.6 (0.9-2); Albumin Level 3.6 gm/dl (3.4-5.0); BUN Creatinine Ratio 10.1 (10-20); Bilirubin,Total 0.8 mg/dl (0.2-1.0); Calcium 8.8 mg/dl (8.6-10.3); Creatinine Clr Calc Pharmacy 149.7 ml/min; Est GFR (African American) 134.9 ml/min; Est GFR (Non-African American) 116.4 ml/min; Globulin 2.3 gm/dl (2.5-4.0); Potassium 3.5 mmol/L (3.5-5.1); Total Protein 5.9 gm/dl (6.0-8.3)
--- NOTE | 2023-03-19 16:06 | Hospitalist Progress Note ---
Date of Service March 19, 2023 Assessment & Plan (1) Left lower lobe pneumonia: (2) Parainfluenza infection: Plan: ASSESSMENT AND PLAN: This is a 27-year-old male who presents with ongoing flu- like symptoms for the last [address] scan showing left lower lobe pneumonia. 1. Left lower lobe pneumonia - discussed with Radiologist, no PE - ff up cultures - continue IV Zosyn and Doxy Nebs q6h IS and FV - monitor closely 03/19 afebrile clinically improving BC negative so far continue Zosyn + Doxy (+) probiotics continue nebs will need 2 step before discharge 2. Parainfluenza infection.On resp biofire. Droplet precautions. Supportive care. 3. Possible Small PE. - ruled out - has some trace edema and pain over his legs Doppler US to r/o DVT 2. Electrolyte abnormalities, hypokalemia, hypomagnesemia. We will replace.Will follow labs. - resolved plan of care discussed with patient and family in detail and at length all questions answered they are understanding, agreeable, comfortable with the plan of care Admission and Anticipated Discharge Date Admission Date: March 18, 2023 Subjective ff up for pneumonia, etc seen resting in bed, sitting up comfortable states he feels improved compared to yesterday still has some dyspnea with exertion less cough no chest pain now no fever/chills, nausea no other symptoms Review of Systems Review of Systems: all noted and negative except for above Physical Exam Physical Exam: General- oriented x 3, not in distress, speaks in sentences with no effort or accessory muscle use Eyes- anicteric Neck- no JVD Lungs-(+) mild decreased BS on the left mid-base Heart- normal rate, regular rhythm; no murmurs Abdomen- normal bowel sounds, nondistended, soft, nontender Extremities- trace pretibial edema, no calf tenderness Neuro- alert, oriented x 3; no gross focal neurologic deficits Skin- warm & dry Results & Data Results & Data Vital Signs (Past 12 Hours) Vital Signs Temp Pulse Pulse Resp BP Pulse Ox O2 Del Method 03/19/23 11:14 36.8 C 69 18 110/69 95 Room Air 03/19/23 12:54 77 16 94 Room Air 03/19/23 08:39 Nasal Cannula 03/19/23 08:20 84 18 122/61 98 Room Air 03/19/23 07:23 78 16 95 Nasal Cannula 03/19/23 07:15 65 O2 Flow Rate 03/19/23 11:14 03/19/23 12:54 03/19/23 08:39 3 03/19/23 08:20 03/19/23 07:23 3 03/19/23 07:15 all noted and reviewed including below
[2023-03-20] MEDS: IPRATROPIUM BROMIDE NEB SOLN 0.02% 2.5 ML VIAL INH SCH ×2 (01:31→07:15)
[2023-03-20] MEDS: LEVALBUTEROL 1.25 MG/3 ML NEB NEB SCH ×2 (01:31→07:15)
[2023-03-20] MEDS: DOXYCYCLINE HYCLATE 100 MG in DEXTROSE 5% 100 ML IV SCH (04:21)
[2023-03-20] MEDS: PIPERACILLIN/TAZOBACTAM 4.5 GM in DEXTROSE 5% 100 ML IV SCH (06:14)
[2023-03-20] MEDS: SODIUM CHLOR 7% 4 ML NEB NEB SCH (07:15)
[2023-03-20] MEDS ORDERED: ADVANCED PROBIOTIC 1250 MG CAPSULE PO SCH (09:00)
[2023-03-20 09:29] LABS: Basophils # (auto) 0.01 K/uL (0-0.2); Basophils % (auto) 0.2 %; Eosinophils # (auto) 0.07 K/uL (0-0.50); Eosinophils % (auto) 1.1 %; Hematocrit (blood only) 39.5 % (42.0-52.0); Immature Granulocytes # (auto) 0.06 K/uL (0.01-0.20); Immature Granulocytes % (auto) 0.9 %; Lymphocytes # (auto) 0.76 K/uL (1.2-3.4); Lymphocytes % (auto) 11.8 %; Mean Corpuscular Hemoglobin 30.3 pg (25.0-34.0); Mean Corpuscular Hgb Conc 35.4 g/dL (32.0-36.0); Mean Corpuscular Volume 85.5 fL (80.0-100.0); Mean Platelet Volume 11.3 fL (9.4-12.4); Monocytes # (auto) 0.25 K/uL (0.11-0.59); Monocytes % (auto) 3.9 %; Neutrophils # (auto) 5.28 K/uL (1.40-6.50); Neutrophils % (auto) 82.1 %; Platelet Count 142 K/uL (130-400); RDW Coefficient of Variation 12.8 % (11.5-14.5); RDW Standard Deviation 39.7 fL (36.4-46.3); Red Blood Count 4.62 M/uL (4.70-6.10); White Blood Count 6.43 K/ul (4.8-10.8)
[2023-03-20 09:53] LABS: Albumin Globulin Ratio 1.4 (0.9-2); Albumin Level 3.8 gm/dl (3.4-5.0); BUN Creatinine Ratio 9.9 (10-20); Bilirubin,Total 0.6 mg/dl (0.2-1.0); Calcium 9.3 mg/dl (8.6-10.3); Creatinine Clr Calc Pharmacy 119.9 ml/min; Est GFR (African American) 104.2 ml/min; Est GFR (Non-African American) 89.9 ml/min; Globulin 2.7 gm/dl (2.5-4.0); Potassium 3.4 mmol/L (3.5-5.1); Total Protein 6.5 gm/dl (6.0-8.3)
--- NOTE | 2023-03-20 10:52 | Ultrasound Report ---
US venous doppler LE BI CLINICAL HISTORY: edema, pain, r/o dvt TECHNIQUE: Bilateral lower extremity real-time compression venous ultrasound with Color Doppler imagi ng. Utilizing real-time ultrasonic imaging multiple real time high-resolution ultrasonic images with compression and noncompression maneuvers of the deep venous system in addition to color doppler imagi ng were performed from the common femoral vein through the proximal calf veins. COMPARISON: None available at the time of this dictation. FINDINGS/IMPRESSION: Currently there is normal compressibility of the deep venous system from the common femoral vein thro ugh the proximal calf veins. No superficial venous thrombosis is identified. ACT 112: Negative or not required by law. Electronically signed by: Angelito Proctor M.D. 03/20/2023 10:51 AM
--- NOTE | 2023-03-20 19:14 | Hospitalist Progress Note ---
Date of Service March 20, 2023 Assessment & Plan (1) Left lower lobe pneumonia: (2) Parainfluenza infection: Plan: ASSESSMENT AND PLAN: This is a 27-year-old male who presents with ongoing flu- like symptoms for the last [address] scan showing left lower lobe pneumonia. 1. Left lower lobe pneumonia - discussed with Radiologist, no PE - ff up cultures - continue IV Zosyn and Doxy Nebs q6h IS and FV - monitor closely 03/20 afebrile clinically improved BC negative Given Zosyn + Doxy (+) probiotics continue nebs -Two-step performed No oxygen pulm needed Discharge plan: Levaquin 750 mg p.o. daily x7 days Albuterol inhaler as needed for shortness of breath 2. Parainfluenza infection.On resp biofire. Droplet precautions. Supportive care. 3. Possible Small PE. - ruled out Doppler US to r/o DVT: Negative 2. Electrolyte abnormalities, hypokalemia, hypomagnesemia. We will replace.Will follow labs. - resolved plan of care discussed with patient in detail and at length all questions answered he is understanding, agreeable, comfortable with the plan of care Admission and Anticipated Discharge Date Admission Date: March 18, 2023 Subjective Follow-up for pneumonia, etc. Seen sitting up in bed, comfortable working with spirits States he feels fine overall, much better Denies shortness of breath with ambulation Cough has resolved No fevers or chills No chest pain No any other symptoms States he is ready for discharge today Review of Systems Review of Systems: all noted and negative except for above Physical Exam Physical Exam: General- oriented x 3, not in distress, speaks in sentences with no effort or accessory muscle use Eyes- anicteric Neck- no JVD Lungs- clear breath sounds bilaterally, no crackles or wheezing Heart- normal rate, regular rhythm; no murmurs Abdomen- normal bowel sounds, nondistended, soft, no tenderness Extremities- no pretibial edema, no calf tenderness Neuro- alert, oriented x 3; no gross focal neurologic deficits Skin- warm & dry Results & Data Results & Data Vital Signs (Past 12 Hours) Vital Signs Temp Pulse Pulse Pulse Pulse Pulse Resp 03/20/23 12:49 36.9 C 58 L 16 03/20/23 11:47 36.9 C 58 L 16 03/20/23 08:15 03/20/23 09:12 100 H 88 89 03/20/23 08:13 36.6 C 80 16 03/20/23 07:27 64 03/20/23 07:16 70 16 Resp Resp Resp BP Pulse Ox Pulse Ox Pulse Ox 03/20/23 12:49 115/60 95 03/20/23 11:47 115/60 95 03/20/23 08:15 03/20/23 09:12 18 15 14 93 93 03/20/23 08:13 116/70 92 03/20/23 07:27 03/20/23 07:16 94 Pulse Ox O2 Del Method 03/20/23 12:49 03/20/23 11:47 Room Air 03/20/23 08:15 Room Air 03/20/23 09:12 93 03/20/23 08:13 Room Air 03/20/23 07:27 03/20/23 07:16 Room Air all noted and reviewed including below
--- NOTE | 2023-03-21 17:04 | Discharge Summary ---
Discharge Summary Date of Service March 21, 2023 Notes For Next Care Provider Medication Changes From Visit Levaquin 750 mg p.o. daily x7 days Albuterol as needed for shortness of breath or wheezing Admission HPI Per Admitting Provider HISTORY OF PRESENT ILLNESS: A 27-year-old male [employer] patient presents with flu-like symptoms last 2 weeks, has cough, body aches, back pain going on for the last 2 weeks but lately got worse with some shortness of breath, poor appetite, and a couple of episodes of nausea today, which prompted him to come to the ER .In ER and was spiking temperature, was placed on oxygen, slightly tachycardic. Respiratory BioFire came back positive for parainfluenza and CTA chest showed left lower lobe pneumonia, . The patient received antibiotics, vancomycin and Zosyn in the ER. The patient is alert, awake, speaks with low voice. Denies any chest pain. Denies any headache. No blurred visions. No earache. Has some runny nose and some sore throat. No abdominal pain. Normal bowel and bladder movements. No rash. No swelling in the legs. ALLERGIES: No known drug allergies. PAST MEDICAL HISTORY: Denies any past medical history. PAST SURGICAL HISTORY: Denies any surgeries. MEDICATIONS: Denies taking any medications. FAMILY HISTORY: Denies any family history of heart disease or cancer, hypertension, diabetes. REVIEW OF SYSTEMS: As per HPI. Rest of review of systems is negative. PHYSICAL EXAMINATION: GENERAL: The patient is of moderate build, not in acute distress. VITAL SIGNS: T-max 38.3, pulse 94, respiratory rate 20, blood pressure 112/66, oxygen 94 % on 4 liters. HEENT: Pupils equal, round and reactive to light. Oral mucosa moist. NECK: No JVD, no neck masses. CARDIOVASCULAR: S1 and S2 heard. Tachycardia. No murmurs. RESPIRATORY SYSTEM: Normal AP diameter. No accessory muscle use. No wheezing or crackles. ABDOMEN: Soft, bowel sounds present, nontender, no distention. CENTRAL NERVOUS SYSTEM: Alert and oriented. Speech is clear. No facial droop. Obeys simple commands. Moves extremities. EXTREMITIES: No edema, no erythema. Principal Dx & Hospital Course #1 = Principal Diagnosis (1) Left lower lobe pneumonia: (2) Parainfluenza infection: ASSESSMENT AND PLAN: This is a 27-year-old male who presents with ongoing flu- like symptoms for the last [address] scan showing left lower lobe pneumonia. 1. Left lower lobe pneumonia - discussed with Radiologist, no PE - ff up cultures - continue IV Zosyn and Doxy Nebs q6h IS and FV - monitor closely 03/20 afebrile clinically improved BC negative Given Zosyn + Doxy (+) probiotics continue nebs -Two-step performed No oxygen pulm needed Discharge plan: Levaquin 750 mg p.o. daily x7 days Albuterol inhaler as needed for shortness of breath Repeat CT chest as an outpatient Abnormal CT findings Partially visualized left kidney appears to have cortical thinning and cystic changes or hydronephrosis. Limited minimal visualization. -- Follow-up as outpatient 2. Parainfluenza infection.On resp biofire. Droplet precautions. Supportive care. 3. Possible Small PE. - ruled out Doppler US to r/o DVT: Negative 2. Electrolyte abnormalities, hypokalemia, hypomagnesemia. We will replace .Will follow labs. - resolved plan of care discussed with patient in detail and at length all questions answered he is understanding, agreeable, comfortable with the plan of care Discharge Exam General- oriented x 3, not in distress, speaks in sentences with no effort or accessory muscle use Eyes- anicteric Neck- no JVD Lungs- clear breath sounds bilaterally, no crackles or wheezing Heart- normal rate, regular rhythm; no murmurs Abdomen- normal bowel sounds, nondistended, soft, no tenderness Extremities- no pretibial edema, no calf tenderness Neuro- alert, oriented x 3; no gross focal neurologic deficits Skin- warm & dry Updated Medication List Medication Instructions Recorded Confirmed Type loratadine 10 mg tablet (Allergy 10 mg PO DAILY PRN Congestion 03/17/23 03/17/23 History Relief (loratadine)) albuterol sulfate 90 mcg/actuation 2 inh inhalation Q4H PRN shortness 03/20/23 Rx aerosol inhaler (ProAir HFA) of breath or wheezing #8.5 grams levofloxacin 750 mg tablet 750 mg PO DAILY 7 days #7 tabs 03/20/23 Rx Hospital Stay Data Consultations 03/18/23 01:16 ED Decision to Admit Stat Diagnostic Imagining Performed 03/17/23 23:00 CT angio chest PE protocol Stat [facility] [place] [phone] CT Scan Report Patient:DA LEIJA Admit Date:03/17/23 MR#:[id number] Address1:[address] [facility] Acct ID:[id number] Address2: Date:[address] [facility] Zip:[place] [address] Age:27 Location:ED Sex:M Room/Bed: Att Phy: Diagnosis:BACK PAIN,LETHARGIC,HURTS TO BREATHE Kavita Phy:PCP,NO Service Date:03/17/23 Fam Phy: Interpreting Phy:Melchor Pham MDAdmit Phy: Ordering Phy:Foreign Nunez PA-C cc: ~ Exam(s): CTA CHEST IV Amt: 112 ml optiray 320 EXAM: CT Angiography Chest With Intravenous Contrast CLINICAL HISTORY: Reason for exam: Fever, SOB, cough. TECHNIQUE: Axial computed tomographic angiography images of the chest with intravenous contrast. CTDI is 20.5 mGy and DLP is 673.81 mGy-cm. Automated exposure control was utilized for the study. A dose lowering technique was utilized adhering to the principles of ALARA. MIP reconstructed images were created and reviewed. COMPARISON: Prior chest x-ray dated 03/17/2023 FINDINGS: Pulmonary arteries: Breathing motion artifact limits evaluation of the peripheral arteries. No central pulmonary embolism. Somewhat low- density appearance in the left upper lobe segmental/subsegmental artery, series 4 image 158. Limited evaluation with motion artifact at this level. Small PE not excluded. Aorta: No acute findings. No thoracic aortic aneurysm. Lungs: Large area of consolidation in the left lower lobe. Mild right basilar atelectasis or airspace disease. Pleural space: Unremarkable. No significant effusion. No pneumothorax. Heart: Unremarkable. No cardiomegaly. No significant pericardial effusion. No evidence of RV dysfunction. Bones/joints: No acute fracture. No dislocation. Soft tissues: Unremarkable. Lymph nodes: Unremarkable. No enlarged lymph nodes. Kidneys and ureters: Partially visualized left kidney appears to have cortical thinning and cystic changes or hydronephrosis. Limited minimal visualization. IMPRESSION: 1. Large area of consolidation in the left lower lobe. Likely represents pneumonia. Consider follow-up to exclude malignancy. 2. Breathing motion artifact limits evaluation of the peripheral arteries. No central pulmonary embolism. Somewhat low-density appearance in the left upper lobe segmental/subsegmental artery, series 4 image 158. Limited evaluation with motion artifact at this level. Small PE not excluded. 3. Partially visualized left kidney appears to have cortical thinning and cystic changes or hydronephrosis. Limited minimal visualization. Electronically signed by: Melchor Pham M.D. 03/18/23 00:56 AM 03/20/23 16:06 US venous doppler LE BI Routine TECHNIQUE: Bilateral lower extremity real-time compression venous ultrasound with Color Doppler imaging. Utilizing real-time ultrasonic imaging multiple real time high-resolution ultrasonic images with compression and noncompression maneuvers of the deep venous system in addition to color doppler imaging were performed from the common femoral vein through the proximal calf veins. COMPARISON: None available at the time of this dictation. FINDINGS/IMPRESSION: Currently there is normal compressibility of the deep venous system from the common femoral vein through the proximal calf veins. No superficial venous thrombosis is identified. ACT 112: Negative or not required by law. Pending Results Patient Have Any Pending Studies at Discharge: No Discharge Instructions Given to Patient (Per Discharging Provider) PLEASE REFER TO YOUR NEW MEDICATION LIST AND FOLLOW INSTRUCTIONS CAREFULLY. YOUR NEW MEDICATIONS INCLUDE: LEVAQUIN- antibiotic for pneumonia ALBUTEROL- inhaler, as needed for shortness of breath Please drink plenty of fluids. PLEASE CALL YOUR PRIMARY CARE PHYSICIAN OR RETURN TO THE ER IF WITH WORSENING OF SYMPTOMS, INCLUDING shortness of breath, chest pain, fever/chills, etc FOLLOW UP WITH PRIMARY CARE PHYSICIAN IN 1 WEEK. Total Time Total Time Spent Total Time Spent (In Minutes): > 30 minutes
== END 2023-03-20 13:14 | disposition home or self-care (01) | DRG 195 ==
LOC: ED 22:29 → EDINP 03-18 02:01 → 2W 03-18 03:17